=== PATIENT | female | born 1980 | race African-American/Black ===

== ENCOUNTER 2016-08-23 06:19 | Emergency (ER) | payer SELFPAY ==
[~2016-08-23] VITALS: Ht 170.2 cm; Wt 72.6 kg
--- NOTE | 2016-08-23 06:20 | NUR ---
PT PRESENTED TO THE ER WITH A C/O MID ABD PAIN SINCE 1999. 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 PT STATED THAT IT HELPED FOR A WHILE BUT IT CAME BACK. PT AMBULATED TO BED #3. URINE SAMPLE OBTAINED AND SENT TO LAB. PT IS ON THE MONITOR AND CONTINUOUS PULSE OX.
--- NOTE | 2016-08-23 06:55 | NUR ---
18G IV STARTED. BLOOD DRAWN AND SENT TO LAB.
[2016-08-23] MEDS ORDERED: PANTOPRAZOLE 40 MG VIAL ONE (06:59)
[2016-08-23] MEDS ORDERED: ONDANSETRON HCL/PF 4 MG/2 ML VIAL ONE (06:59)
[2016-08-23] MEDS ORDERED: IV SET PRIMARY 1 EA INFUS.SET MC ONE (06:59)
[2016-08-23] MEDS ORDERED: IV NS 0.9% 1,000 ML ONE (06:59)
[2016-08-23] MEDS ORDERED: MORPHINE SULFATE INJ 4 MG/ML DISP.SYRIN ONE ×2 (06:59→08:51)
[2016-08-23] MEDS: IV NS 0.9% 1,000 ML BAG IV ONE (07:07)
[2016-08-23 07:10] LABS: BASOPHILS # (AUTO) 0.1 /CMM (0.0-0.2); BASOPHILS % (AUTO) 0.4 % (0.0-2.0); EOSINOPHILS # (AUTO) 0.1 /CMM (0.0-0.7); EOSINOPHILS % (AUTO) 0.5 % (0.0-6.0); HEMATOCRIT 39 % (33-45); HEMOGLOBIN 13.2 g/dL (11.5-14.8); LYMPHOCYTES # (AUTO) 1.1 /CMM (0.8-4.8); LYMPHOCYTES % (AUTO) 5.8 % (20.0-44.0); MEAN CORPUSCULAR HEMOGLOBIN 31 PG (26.0-33.0); MEAN CORPUSCULAR HGB CONC 34 g/dl (31.0-36.0); MEAN CORPUSCULAR VOLUME 92 fL (82-100); MONOCYTES # (AUTO) 0.1 /CMM (0.1-1.30); MONOCYTES % (AUTO) 0.7 % (2.0-12.0); NEUTROPHILS # (AUTO) 17.1 /CMM (1.8-8.9); NEUTROPHILS % (AUTO) 92.6 % (43.0-81.0); PLATELET COUNT (AUTO) 306 /CMM (150-450); RDW COEFFICIENT OF VARIATION 13.4 (11.5-15.0); RED BLOOD CELL COUNT(AUTO) 4.28 MIL/uL (4.0-5.2); WHITE BLOOD COUNT (AUTO) 18.5 K/uL (4.3-11.0)
[2016-08-23] MEDS: ONDANSETRON HCL/PF 4 MG/2 ML VIAL IVP ONE (07:10)
[2016-08-23] MEDS: PANTOPRAZOLE 40 MG VIAL IV ONE (07:12)
[2016-08-23] MEDS: MORPHINE SULFATE INJ 2 MG/ML DISP.SYRIN IV ONE ×2 (07:14→08:59)
[2016-08-23 07:19] LABS: CALCIUM, SERUM 9.9 mg/dL (8.5-10.1); CREATININE 0.8 mg/dL (0.6-1.3); POTASSIUM 3.7 mmol/L (3.5-5.1)
--- NOTE | 2016-08-23 07:19 | NUR ---
REPORT GIVEN TO WM GILL FOR DESIREE.
[2016-08-23 07:21] LABS: APPEARANCE,URINE CLEAR (CLEAR); BILIRUBIN,URINE NEGATIVE (NEGATIVE); BLOOD, URINE NEGATIVE Ery/uL (NEGATIVE); COLOR,URINE YELLOW (YELLOW); KETONES,URINE 3+ (NEGATIVE); LEUKOCYTE ESTERASE ,URINE NEGATIVE (NEGATIVE); NITRITE, URINE NEGATIVE (NEGATIVE); PH,URINE 7.5 (5.0-8.0); PROTEIN,URINE TRACE mg/dl (NEGATIVE); UGLUCOSE NEGATIVE (NEGATIVE); UROBILINOGEN,URINE 0.2 EU/dL (0.2)
[2016-08-23 07:26] LABS: RBC,URINE NONE SEEN /HPF (0-2); WBC,URINE 0-2 /HPF (0-3)
[2016-08-23 07:27] LABS: BACTERIA,URINE Few /HPF (None Seen); PREGNANCY TEST URINE QUAL NEGATIVE (NEGATIVE); SQUAMOUS EPITHELIAL CELL,UR Few /HPF (None Seen)
[2016-08-23 07:29] LABS: ALBUMIN 4.2 g/dL (3.4-5.0); BILIRUBIN,DIRECT 0.1 mg/dL (0.0-0.2); BILIRUBIN,TOTAL 0.4 mg/dL (0.2-1.0); TOTAL PROTEIN, SERUM 8.8 g/dL (6.4-8.2)
--- NOTE | 2016-08-23 07:58 | NUR ---
U/S TECH AT BEDSIDE FOR GALLBLADDER ULTRASOUND.
[2016-08-23] MEDS ORDERED: LIDOCAINE VISCOUS 2% UD 15 ML UDC ONE (09:32)
[2016-08-23] MEDS ORDERED: MAG HYDROX/AL HYDROX/SIMETH 30 ML UDC ONE (09:32)
[2016-08-23] MEDS: LIDOCAINE VISCOUS 2% UD 15 ML UDC PO ONE (09:47)
[2016-08-23] MEDS: MAG HYDROX/AL HYDROX/SIMETH 30 ML UDC PO ONE (09:47)
--- NOTE | 2016-08-23 10:22 | NUR ---
Patient discharged to home in stable condition. Written and verbal after care instructions given. Patient verbalizes understanding of instruction.IV removed. Catheter intact and site benign. Pressure and 4x4 applied to site. No bleeding noted.
[2016-08-23 10:23] VITALS: BP 132/66
== END 2016-08-23 10:24 | disposition home or self-care (01) ==
LOC: ER 06:19
DX: K52.9 Noninfective gastroenteritis and colitis, unspecified (principal)
CPT/HCPCS: 36415; 76705-TC; 80048-TC; 80076-TC; 81000-TC; 83690-TC; 84703-TC; 85025-TC; 87086-TC; A4606; C9113; J2270; J2405; J7030; Z7610